=== PATIENT | female | born 1950 | race Caucasian/White ===

== ENCOUNTER → 2021-10-28 13:20 | Outpatient (BNVA) | payer OTHER, SELFPAY | PROVIDERS: Family Provider Nurse Practitioner; PCP Nurse Practitioner; Referring Provider Nurse Practitioner; Visit Provider Surgery | DX: Z12.11 Encounter for screening for malignant neoplasm of colon (principal) | CPT/HCPCS: 99204 ==

== ENCOUNTER 2021-12-17 06:02 | Day surgery (SDC) | payer OTHER, SELFPAY ==
[2021-12-12 12:17] VITALS: BMI 26.7
[2021-12-17 06:39] VITALS: BP 142/101; PULSE 82; RESP 18; TEMP 36.2; O2SAT 98
--- NOTE | 2021-12-17 06:47 | ANES.PREANE2 ---
Documented by User: Meena Gusman CRNA 12/17/21 06:51 Pre-Anesthetic Assessment Height/Weight: Height 1.7 m Weight 77.564 kg Preop Diagnosis: diagnostic Operation Date: 12/17/21 07:30 Proposed Procedures p Colonoscopy 69155/z12.11(Not Applicable) - Sanjay Arias MD Familial anesthetic complications: none Social Alcohol (wine 3x week) Airway Submandibular: within normal limits Cervical ROM: within normal limits Mallampati: Class II Dentition: partials (bridge) History/ROS No significant history except as noted Pulmonary None reported CV/HEM Hypertension Chronic Renal Insufficiency 40% reduction in kidney function in the last year currently undergoing evaluation. Hepatic None reported GI Gastroesophageal Reflux Disease Metabolic None reported Musc/skel sciatic issues. Neuropsych None reported Anesthetic Plan ASA status: 3 Anesthesia: MAC Medications/Allergies Home Medications Medication Instructions Recorded Confirmed Last Taken Type cyclobenzaprine 5 mg tablet 5 mg PO TID PRN 12/12/21 12/17/21 Unknown History magnesium 200 mg tablet 400 mg PO DAILY 12/12/21 12/17/21 12/12/21 History Allergies Allergy/AdvReac Type Severity Reaction Status Date / Time penicillamine Allergy algy-rash Verified 12/12/21 12:12 [facility] Anesthesia Medical History Ingrown toenail of right foot Surgical History (Updated 12/17/21 @ 08:08 by Sanjay Arias MD) History of colonoscopy (12/17/21) History of tonsillectomy and adenoidectomy Hx of appendectomy Hx of cholecystectomy Hx of tubal ligation Family History Denies family history of Diabetes CAD (coronary artery disease) Clotting disorder Dementia Hyperlipidemia Psychiatric illness Chronic kidney disease (CKD) Suicide Anesthesia complication Bleeding disorder Family history of premature coronary artery disease Lung disease Cancer Hypertension Stroke Social History Smoking and tobacco status: former smoker Alcohol intake: never Current occupational status: retired Data Anesthesia Cardiac Studies: No Data to Display Documented by User: Ginette Martinez DO 12/17/21 10:31 Pre-Anesthetic Assessment Was Beta Phi taken within 24 hours: N/A Was Clonidine taken within 24 hours: N/A Medications/Allergies Home Medications Medication Instructions Recorded Confirmed Last Taken Type cyclobenzaprine 5 mg tablet 5 mg PO TID PRN 12/12/21 12/17/21 Unknown History magnesium 200 mg tablet 400 mg PO DAILY 12/12/21 12/17/21 12/12/21 History Allergies Allergy/AdvReac Type Severity Reaction Status Date / Time penicillamine Allergy algy-rash Verified 12/12/21 12:12 [facility] Anesthesia Medical History Ingrown toenail of right foot Surgical History (Updated 12/17/21 @ 08:08 by Sanjay Arias MD) History of colonoscopy (12/17/21) History of tonsillectomy and adenoidectomy Hx of appendectomy Hx of cholecystectomy Hx of tubal ligation Family History Denies family history of Diabetes CAD (coronary artery disease) Clotting disorder Dementia Hyperlipidemia Psychiatric illness Chronic kidney disease (CKD) Suicide Anesthesia complication Bleeding disorder Family history of premature coronary artery disease Lung disease Cancer Hypertension Stroke Social History Smoking and tobacco status: former smoker Alcohol intake: never Current occupational status: retired Data Anesthesia Cardiac Studies: No Data to Display
[2021-12-17] MEDS: sodium chloride 0.9% 1,000 ML 30 ML IV (06:58)
--- NOTE | 2021-12-17 07:01 | P.HP_ITS ---
Same Day Surgery H&P Indication for Procedure/HPI DATE OF PROCEDURE: December 17, 2021 CHIEF COMPLAINT/INDICATIONFOR SURGICAL PROCEDURE: colonoscopy PREOP DIAGNOSIS: diagnostic PLANNED PROCEDURE: Operation Date: 12/17/21 07:30 Proposed Procedures p Colonoscopy 10235/z12.11(Not Applicable) - Sanjay Arias MD Medications/Allergies* Home Medications Medication Instructions Recorded Confirmed Type cyclobenzaprine 5 mg tablet 5 mg PO TID PRN 12/12/21 12/17/21 History magnesium 200 mg tablet 400 mg PO DAILY 12/12/21 12/17/21 History Allergies/Adverse Reactions Allergy/AdvReac Type Severity Reaction Status Date / Time penicillamine Allergy algy-rash Verified 12/12/21 12:12 Current Medications: Generic Name Dose Route Start Last Admin Trade Name Freq PRN Reason Stop Dose Admin Sodium Chloride 1,000 mls @ 30 mls/hr 12/17/21 06:30 12/17/21 06:58 Sodium Chloride 0.9% IV 12/18/21 06:29 30 mls/hr .Q24H TERESITA Administration Pertinent History/Comorbid Conditions* Medical History (Updated 09/16/19 @ 21:14 by Bandar Nassar DPM) Ingrown toenail of right foot Surgical History (Updated 10/28/21 @ 13:49 by Sanjay Arias MD) History of colonoscopy History of tonsillectomy and adenoidectomy Hx of appendectomy Hx of cholecystectomy Hx of tubal ligation Family History (Updated 09/12/19 @ 13:16 by Edilia Aranda LPN) Denies family history of Diabetes CAD (coronary artery disease) Clotting disorder Dementia Hyperlipidemia Psychiatric illness Chronic kidney disease (CKD) Suicide Anesthesia complication Bleeding disorder Family history of premature coronary artery disease Lung disease Cancer Hypertension Stroke Social History Smoking and tobacco status: former smoker Alcohol intake: never Current occupational status: retired Pertinent Exam Findings alert, oriented x 3 and regular rate & rhythm Recommendations Surgery/Procedure today Coding Level of Care Code Acute Plasma Processing Centrifuge Operator for Radha Porter
[2021-12-17 08:04] VITALS: BP 121/86; PULSE 81; RESP 14; TEMP 36.1; O2SAT 97
[2021-12-17 08:11] VITALS: BP 133/96; PULSE 72; RESP 16; O2SAT 95
[2021-12-17 08:22] VITALS: BP 155/99; PULSE 65; RESP 16; O2SAT 96
--- NOTE | 2021-12-17 10:31 | ANE.PACU2 ---
Inpatient post-anesthesia follow up: Airway intact: Yes Vital signs: Temperature 97.0 F Pulse Rate 65 Respiratory Rate 16 Blood Pressure 155/99 Pulse Oximetry 96 Oxygen Delivery Me thod Room Air Oxygen Flow Rate Fraction of Inspir ed Oxygen Hydration adequate: Yes Nausea and vomiting: No Pain level: 1 Mental status: Baseline
== END 2021-12-17 08:30 | disposition home or self-care (01) ==
PROVIDERS: PCP Nurse Practitioner; Visit Provider Surgery
PROC: 0DJD8ZZ Inspection of Lower Intestinal Tract, Via Natural or Artificial Opening Endoscopic (ICD-10-PCS; CPT 45378; principal; 2021-12-17 07:30)
DX: Z12.11 Encounter for screening for malignant neoplasm of colon (principal); D12.4 Benign neoplasm of descending colon; K57.30 Diverticulosis of large intestine without perforation or abscess without bleeding; D12.5 Benign neoplasm of sigmoid colon; Z87.891 Personal history of nicotine dependence; I10 Essential (primary) hypertension; K21.9 Gastro-esophageal reflux disease without esophagitis
CPT/HCPCS: 45380; 88305; J2704; J7030

== ENCOUNTER → 2021-12-30 11:53 | Outpatient (BNVA) | payer OTHER, SELFPAY | PROVIDERS: PCP Nurse Practitioner; Visit Provider Surgery | DX: K63.5 Polyp of colon (principal) | CPT/HCPCS: 99212 ==

== ENCOUNTER 2022-01-07 12:28 | Outpatient (CLI) | payer OTHER, SELFPAY ==
--- NOTE | 2022-01-07 12:40 | MR_ITS ---
WS: [id number] MRI LUMBAR SPINE NONCONTRAST HISTORY: low back pain COMPARISON: None available. TECHNIQUE: Sagittal and axial multisequence imaging is submitted. Mild increase in the thoracic kyphosis. Disc spaces are narrowed and small osteophytes and/or disc pr otrusions. No high-grade thoracic stenosis. Mild LEFT curvature of lumbar spine. 2 mm retrolisthesis of L4. No lumbar spine fracture or edema. Disc spaces are mildly narrowed and desiccated. Conus terminates normally at L1. L1-L2: Normal. L2-L3: Mild disc bulging. Mild encroachment upon the LEFT traversing L3 nerve root but no displacemen t. No high-grade stenosis. L3-L4: Mild annular disc bulge with a central shallow protrusion and annular fissure. Mild ligamentum flavum and facet arthritis. Mild bilateral subarticular recess encroachment and contact on the trave rsing L4 nerve roots. L4-L5: Mild asymmetric disc bulging to the LEFT. Asymmetric ligamentum flavum hypertrophy, greatest o n the LEFT. Mild bilateral facet joint arthritis. There is mild encroachment into the ventral thecal sac with mild central and bilateral subarticular recess and LEFT foraminal stenosis. L5-S1: Mild disc bulging and very minimal contact on the S1 nerve roots but no displacement. Very min imal foraminal narrowing. Visualized retroperitoneum is normal. MR/MR lumbar spine wo con* [id number] IMPRESSION: 1. Mild LEFT curvature lumbar spine. 2. Mild encroachment LEFT traversing L3 nerve root. 3. Very shallow central disc protrusion and annular fissure at L3-4. 4. Mild disc encroachment in the subarticular recesses at L3-4 with minimal co ntact on the traversing L4 nerve roots. 5. Mild central, bilateral subarticular recess and LEFT foraminal stenosis at L4-5. 6. Very minimal disc contact on the traversing S1 nerve roots bilaterally.
== END 2022-01-07 12:29 | disposition home or self-care (01) ==
LOC: RAD 12:29
PROVIDERS: PCP Nurse Practitioner; Visit Provider Nurse Practitioner
DX: M54.50 Low back pain, unspecified (principal); M43.9 Deforming dorsopathy, unspecified; M48.061 Spinal stenosis, lumbar region without neurogenic claudication
CPT/HCPCS: 72148

== ENCOUNTER 2022-01-07 12:28 | Outpatient (CLI) | payer OTHER, SELFPAY ==
--- NOTE | 2022-01-07 12:35 | MR_ITS ---
WS: [id number] MRI RIGHT SHOULDER HISTORY: RIGHT SHOULDER PAIN COMPARISON: Pain, osteophytes. TECHNIQUE: Multiplanar sequences of the shoulder joint are submitted. Mild AC joint arthritis. Mild narrowing of the joint space with small osteophytes. There are increase d fluid signal in a portion of the AC joint. 4 mm osteophyte from the distal undersurface of the acro mion with mild subacromial impingement. No os acromion. Biceps tendon is in normal position. Very slight high riding of the humeral head with respect to the glenoid. Mild tendinopathy in the dis ancelmo supraspinatus. Oblique increased signal along the bursal surface of the supraspinatus directly ov er the humeral head. Consistent with a partial bursal surface tear. Additional mild distal tendinopat hy. No retraction of the tendon. No atrophy. The remaining rotator cuff is intact. No labral tear or abnormality. Mild degenerative changes along the surface of the glenoid. MR/MR shoulder RT wo con* [id number] IMPRESSION: 1. Small focal bursal surface tear supraspinatus tendon. 2. Mild AC joint arthritis. 3. 4 mm osteophyte causing mild subacromial impingement. 4. Degenerative osteoarthritic changes along the glenoid surface. Loss of cart ilage and small osteophyte development.
== END 2022-01-07 12:29 | disposition home or self-care (01) ==
LOC: RAD 12:29
PROVIDERS: PCP Nurse Practitioner; Visit Provider Nurse Practitioner
DX: M25.511 Pain in right shoulder (principal); M75.101 Unspecified rotator cuff tear or rupture of right shoulder, not specified as traumatic; M25.711 Osteophyte, right shoulder
CPT/HCPCS: 73221

== ENCOUNTER 2022-06-15 07:00 | Outpatient (CLI) | payer OTHER, SELFPAY ==
--- NOTE | 2022-06-15 07:19 | CT_ITS ---
WS: [id number] CT HEAD NONCONTRAST HISTORY: MEMORY LOSS TECHNIQUE: Contiguous axial imaging performed through the brain in 2.5 mm imaging. Bone and soft tiss ue windows. Sagittal and coronal reformats reviewed. All CT scans at [facility] use at least one of these dose optimization techniques: automated exposure control; mA and/or kV adjustment per pa tient size (includes targeted exams where dose is matched to clinical indication); or iterative recon struction. DLP: 1007.60 mGy.cm COMPARISON: None available. No acute intracranial hemorrhage, midline shift or mass effect. Mild to moderate atrophy and small small vessel ischemic disease. Atrophy is predominantly involving the frontal lobes. No prior infarct. No sulcal effacement or mass effect. Ventricles: Normal size with no hydrocephalus. No inferior displacement of cerebellar tonsils. Paranasal sinuses: As visualized are clear. Mastoid air cells: Well pneumatized. Calvarium and scalp: Skull is intact with no soft tissue edema or swelling. CT/CT head wo con* [id number] IMPRESSION: 1. No acute intracranial hemorrhage or edema. 2. Multilevel moderate bifrontal lobe atrophy. 3. Mild small vessel ischemic disease.
== END 2022-06-15 07:01 | disposition home or self-care (01) ==
LOC: RAD 07:02
PROVIDERS: PCP Nurse Practitioner; Visit Provider Nurse Practitioner
DX: R41.3 Other amnesia (principal); I67.82 Cerebral ischemia; G31.9 Degenerative disease of nervous system, unspecified
CPT/HCPCS: 70450

== ENCOUNTER 2022-07-14 06:53 | Outpatient (CLI) | payer OTHER, SELFPAY | END 2022-07-14 06:54 | disposition home or self-care (01) | LOC: SLEEP 07-15 06:54 | PROVIDERS: PCP Nurse Practitioner; Visit Provider Nurse Practitioner | DX: R53.83 Other fatigue (principal); R06.83 Snoring; G47.33 Obstructive sleep apnea (adult) (pediatric) | CPT/HCPCS: 95810 ==

== ENCOUNTER 2023-09-27 15:35 | Outpatient (CLI) | payer OTHER, SELFPAY ==
--- NOTE | 2023-09-27 15:40 | MM_ITS ---
WS: [id number] BILATERAL 3D TOMOSYNTHESIS DIGITAL SCREENING MAMMOGRAPHY WITH CAD CLINICAL INFORMATION: SCREENING HISTORY: Screening mammogram. No current complaints. COMPARISON: 2022 TECHNIQUE: Bilateral CC and MLO views. FINDINGS: Scattered fibroglandular densities bilaterally. No suspicious focal mass, asymmetry, calcifications, or architectural distortion. No evidence of malignancy. IMPRESSION: MM/[place] [id number] BI-RADS: 1-Negative FOLLOW UP: 1 Year Follow-up Recommend return to annual screening mammography.
== END 2023-09-27 15:36 | disposition home or self-care (01) ==
LOC: RAD 15:36
PROVIDERS: PCP Nurse Practitioner; Visit Provider Nurse Practitioner
DX: Z12.31 Encounter for screening mammogram for malignant neoplasm of breast (principal)
CPT/HCPCS: 77063; 77067

== ENCOUNTER 2024-01-06 09:19 | Emergency (ER) | payer OTHER, SELFPAY ==
[2024-01-06 09:29] VITALS: BP 127/67; PULSE 64; RESP 18; TEMP 36.7; O2SAT 100; BMI 27.3
--- NOTE | 2024-01-06 09:35 | XR_ITS ---
WS: [id number] Exam: XR chest 1V portable [id number] Date/Time of Exam: 01/06/2024 9:35 AM Reason For Exam: dyspnea/cough No comparisons. The lungs are fully expanded and clear. Normal cardiomediastinal silhouette. Regional bony structures are intact. No pleural effusions. Degenerative changes of both shoulders. XR/XR chest 1V portable [id number] IMPRESSION: 1. Negative chest.
--- NOTE | 2024-01-06 09:57 | ECG_ITS ---
[facility] Test Date: 2024-01-06 Pat Name: Meera Hicks Department: Room: Gender: Female Circulator: : 1950 Requested By: Sherri Goodwin Order Number: [id number] Dimas MD: Jonatan Corona M.D. Measurements Intervals Gaston Rate: 60 P: 66 GA: 165 QRS: 13 QRSD: 90 T: 65 QT: 379 QTc: 382 Interpretive Statements SINUS RHYTHM LOW QRS VOLTAGE IN PRECORDIAL LEADS [QRS DEFLECTION < 1.0 mV IN CHEST LEADS] No previous ECG available for comparison Electronically Signed On 01-07-2024 13:36:49 CDT by Jonatan Corona M.D. [id number]
[2024-01-06 10:02] LABS: Basophils % 0.5 %; Eosinophils # 0.1 10^3/uL (0.0-0.8); Eosinophils % 1.4 %; Hematocrit 40.4 % (36-47); Lymphocytes # 2.1 10^3/uL (0.8-4.8); Lymphocytes % 36.3 %; Mean Corpuscular HGB Conc 32.7 g/dL (30-55); Mean Corpuscular Hemoglobin 30.9 pg (27-33); Mean Corpuscular Volume 94.6 fl (85-98); Mean Platelet Volume 11.1 fL (7.4-10.4); Monocytes # 0.5 10^3/uL (0.2-0.9); Monocytes % 8.2 %; Neutrophils # 3.07 10^3/uL (1.8-7.7); Neutrophils % 53.4 %; Nucleated Red Blood Cells % 0 %; Platelet Count 301 10^3/cmm (157-399); Red Blood Count 4.27 10^6/uL (3.85-5.65); White Blood Count 5.75 10^3/uL (3.29-11.43)
[2024-01-06 10:22] LABS: Alanine Aminotransferase 11 U/L (0-33); Albumin Level 4.5 g/dL (3.5-5.2); Alkaline Phosphatase 57 U/L (35-105); Anion Gap 13.9 (5-19); Aspartate Amino Transferase 18 U/L (0-32); Blood Urea Nitrogen 16 mg/dL (8-23); Calcium 9.4 mg/dL (8.5-10.5); Carbon Dioxide 30 mmol/L (22-29); Chloride 102 mmol/L (98-107); Creatinine Clr Calc Pharmacy 55.9713; Globulin 2.7 g/dL (1.3-4.6); Glucose 84 mg/dL (65-115); Osmolality Calculated 292 mOsm/kg (285-295); Potassium 4.9 mmol/L (3.5-5.1); Sodium 141 mmol/L (136-145); Total Bilirubin 0.4 mg/dL (0.15-1.2); Total Protein 7.2 g/dL (6.6-8.7)
[2024-01-06 10:23] LABS: Troponin(5th) Baseline < 6 ng/L (0-10)
--- NOTE | 2024-01-06 10:45 | ED_ITS ---
HPI - Chest Pain 2 General: Chief Complaint: Chest Pain Stated Complaint: SOB Time Seen by Provider: 01/06/24 09:28 Source: patient Mode of arrival: ambulatory Limitations: no limitations History of Present Illness: 73-year-old female states she has been h aving central chest pain over the last 2 weeks she states that sharp pain states began when she is moving furniture pain is worse with movement and palpation. States she seen a chiropractor has had no improvement she denies any shortness of breath denies any nausea or vomiting denies any diaphoresis Associated symptoms: Deny abdominal pain, dyspnea, fever(s), nausea or vomiting Review of Systems 2 Const: Denies: fever(s), chills, body aches or change in appetite ENMT: Denies: throat pain or dental pain Card: Reports: chest pain Resp: Denies: dyspnea GI: Denies: abdominal pain, nausea, vomiting or diarrhea Musc: Denies: neck pain or back pain Skin/Breast: Denies: rash Neuro: Denies: headache(s) PFSH ED 2 PFSH: Medical History Colon polyps Ingrown toenail of right foot Surgical History History of tonsillectomy and adenoidectomy History of colonoscopy (12/17/21) Hx of cholecystectomy Hx of appendectomy Hx of tubal ligation Family History Denies family history of Diabetes CAD (coronary artery disease) Clotting disorder Dementia Hyperlipidemia Psychiatric illness Chronic kidney disease (CKD) Suicide Anesthesia complication Bleeding disorder Family history of premature coronary artery disease Lung disease Cancer Hypertension Stroke Social History Smoking and tobacco/nicotine status: former use of tobacco/nicotine Alcohol intake: never Substance/Drug Use: never Current occupational status: retired Physical Exam 2 Const: COMMON NORMALS: no acute distress, patient oriented x3 and healthy appearing HENMT: COMMON NORMALS: normocephalic and atraumatic HEAD & SCALP: n ormocephalic and atraumatic Eye: COMMON NORMALS: Equal, round and reactive pupils present and EOMs intact bilaterally PUPIL: Yes Equal, round and reactive pupils present Neck/C-Spine: COMMON NORMALS: full ROM and supple Chest: COMMONS NORMALS: normal inspection of the chest OTHER: Point tender in center of chest reproduces her pain Resp: COMMON NORMALS: normal respiratory effort, No retractions, No use of accessory muscles and clear to auscultation bilaterally AUSCULTATION: clear to auscultation bilaterally Cardio: COMMON NORMALS: regular rate, regular rhythm and No murmurs present (Cardio) RATE: regular rate RHYTHM: regular rhythm GI: COMMON NORMALS: Normal to inspection, nondistended, normoactive bowel sounds present, Soft to palpation, non-tender and no masses PALPATION: Yes Soft to palpation Extremity: COMMON NORMALS: normal to inspection and full ROM Neuro: COMMON NORMALS: patient oriented x3, moves all extremities and no focal motor deficits Psych: COMMON NORMALS: mental status grossly normal, Normal thought process present and cooperative THOUGHT PROCESS: Normal thought process present Skin: COMMON NORMALS: no rashes or lesions noted and no wounds GENERAL SKIN EXAM: no rashes or lesions noted Course 2 Vital Signs: Vital signs: Vital Signs Temperature 98.0 F 01/06/24 09:29 Pulse Rate 64 01/06/24 09:29 Respiratory Rate 18 01/06/24 09:29 Blood Pressure 127/67 01/06/24 09:29 Pulse Oximetry 100 01/06/24 09:29 Oxygen Delivery Me thod Room Air 01/06/24 09:29 MDM - Chest Pain Medical Decision Making Patient presents here with chest pains atypical in nature she is point tender is likely chest wall pain her blood work here is normal she is stable for discharge follow-up PCP return if worsening she understands agrees to plan Medical Records I reviewed the patient's medical records. Lab Data I reviewed the patient's lab results. 01/06/24 09:53 01/06/24 09:53 Radiology Impressions Chest X-Ray 01/06/24 09:35 IMPRESSION: 1. Negative chest. Laboratory Results WBC 5.75 10^3/uL (3.29-11.43) 01/06/24 09:53 RBC 4.27 10^6/uL (3.85-5.65) 01/06/24 09:53 Hgb 13.20 g/dL (11.27-16.99) 01/06/24 09:53 Hct 40.4 % (36-47) 01/06/24 09:53 MCV 94.6 fl (85-98) 01/06/24 09:53 MCH 30.9 pg (27-33) 01/06/24 09:53 MCHC 32.7 g/dL (30-55) 01/06/24 09:53 RDW 12.0 % (12.1-15.1) L 01/06/24 09:53 Plt Count 301 10^3/cmm (157-399) 01/06/24 09:53 MPV 11.1 fL (7.4-10.4) H 01/06/24 09:53 Neut % (Auto) 53.4 % 01/06/24 09:53 Lymph % (Auto) 36.3 % 01/06/24 09:53 Meeker % (Auto) 8.2 % 01/06/24 09:53 Eos % (Auto) 1.4 % 01/06/24 09:53 Baso % (Auto) 0.5 % 01/06/24 09:53 Neut # (Auto) 3.07 10^3/uL (1.8-7.7) 01/06/24 09:53 Lymph # (Auto) 2.1 10^3/uL (0.8-4.8) 01/06/24 09:53 Meeker # (Auto) 0.5 10^3/uL (0.2-0.9) 01/06/24 09:53 Eos # (Auto) 0.1 10^3/uL (0.0-0.8) 01/06/24 09:53 Baso # (Auto) 0.0 10^3/uL (0.0-0.1) 01/06/24 09:53 Nucleated RBC % (auto) 0 % 01/06/24 09:53 Nucleated RBCs # 0.0 /100WBC 01/06/24 09:53 Sodium 141 mmol/L (136-145) 01/06/24 09:53 Potassium 4.9 mmol/L (3.5-5.1) 01/06/24 09:53 Chloride 102 mmol/L (98-107) 01/06/24 09:53 Carbon Dioxide 30 mmol/L (22-29) H 01/06/24 09:53 Anion Gap 13.9 (5-19) 01/06/24 09:53 BUN 16 mg/dL (8-23) 01/06/24 09:53 Creatinine 1.0 mg/dL (0.5-0.9) H 01/06/24 09:53 GFR Calculation Not Reportable 01/06/24 09:53 Glucose 84 mg/dL (65-115) 01/06/24 09:53 Calculated Osmolality 292 mOsm/kg (285-295) 01/06/24 09:53 Calcium 9.4 mg/dL (8.5-10.5) 01/06/24 09:53 Total Bilirubin 0.4 mg/dL (0.15-1.2) 01/06/24 09:53 AST 18 U/L (0-32) 01/06/24 09:53 ALT 11 U/L (0-33) 01/06/24 09:53 Alkaline Phosphatase 57 U/L (35-105) 01/06/24 09:53 Troponin T Baseline < 6 ng/L (0-10) 01/06/24 09:53 Total Protein 7.2 g/dL (6.6-8.7) 01/06/24 09:53 Albumin 4.5 g/dL (3.5-5.2) 01/06/24 09:53 Globulin 2.7 g/dL (1.3-4.6) 01/06/24 09:53 Lipase 52 U/L (13-60) 01/06/24 09:53 All radiology interpretation(s) finalized by discharge EKG Data EKG 1: I personally reviewed and interpreted this EKG as follows: EKG interpretation date: 01/06/24 EKG interpretation time: 10:28 Interpretation: nsr hr [address] elevation qrs 104 qtc 421 Discharge Plan Discharge Patient Disposition: Home Clinical Impression: Chest pain Condition: Stable Prescriptions: New Naprosyn 500 mg tablet 500 mg PO BID PRN (Reason: pain) Qty: 20 0RF No Action multivitamin Tablet 1 tab PO DAILY lisinopril 20 mg Tablet 20 mg PO DAILY omeprazole 40 mg Capsule,Delayed Release(Dr/Ec) 80 mg PO DAILY cholecalciferol (vitamin D3) 10 mcg (400 unit) Tablet 10 mcg PO DAILY vitamin E 268 mg (400 unit) Capsule 268 mg PO DAILY calcium citrate 250 mg calcium Tablet 250 mg PO DAILY Discharge Orders: Discharge ED (Routine); Ordered 01/06/24 Ordered By: Sherri Goodwin Referrals: Libertad Adhikari FNP [Primary Care Provider] - 4-7 days Discharge Diet: Advance as tolerated Discharge Activity: Resume usual activity Patient Instructions: Chest Wall Pain (ED) Coding Level of Care Code ED Qm Consultant for Radha Porter
[2024-01-06 10:51] LABS: Lipase 52 U/L (13-60)
[2024-01-06] MEDS: ketorolac 30 mg/mL INJ IM (11:03)
[2024-01-06 11:10] VITALS: BP 169/91; PULSE 57; O2SAT 100
[2024-01-06 11:22] VITALS: PULSE 62; O2SAT 99
== END 2024-01-06 11:24 | disposition home or self-care (01) ==
PROVIDERS: Family Medicine; Emergency Provider Emergency Medicine; PCP Nurse Practitioner
DX: R07.9 Chest pain, unspecified (principal); Z87.891 Personal history of nicotine dependence
CPT/HCPCS: 36415; 71045; 80053; 83690; 84484; 85025; 93005; 96372; 99285; J1885

== ENCOUNTER → 2024-08-28 14:26 | Outpatient (BNVA) | payer OTHER, SELFPAY | PROVIDERS: PCP Nurse Practitioner; Visit Provider Specialist | DX: M17.0 Bilateral primary osteoarthritis of knee (principal) | CPT/HCPCS: 20610; 73560; 73565; 99205; J7325 ==

== ENCOUNTER → 2024-08-30 14:59 | Outpatient (BNVA) | payer OTHER, SELFPAY | PROVIDERS: PCP Nurse Practitioner; Visit Provider Specialist | DX: M19.011 Primary osteoarthritis, right shoulder (principal) | CPT/HCPCS: 20610; 73030; 99214; J1100; J2795; J3301 ==

== ENCOUNTER 2024-09-27 12:58 | Outpatient (CLI) | payer OTHER, SELFPAY ==
--- NOTE | 2024-09-27 13:04 | XR_ITS ---
WS: [email or web address] SCREENING DEXA SCAN [employer] CLINICAL INFORMATION: [id number] COMPARISON: None. FINDINGS: The L1-L4 bone mineral density measures 1.024 g/cm2. This corresponds to a T score score of -1.3 and Z score of 0.0. Left femoral neck bone mineral density measures 0.797 g/cm2. This corresponds to a T score of -1.7 and Z score of -0.4. Right femoral neck bone mineral density measures 0.889 g/cm2. This corresponds to a T score -0.9of and Z score of 0.3. Mean femoral neck bone mineral density measures 0.843 g/cm2. This corresponds to a T score of -1.3 and Z score of 0.0. XR/XR DEXA axial skeleton* [id number] IMPRESSION: Osteopenia lumbar spine. Osteopenia femoral necks. Patient's FRAX calculated 10 year probability for major osteoporotic fracture i s 46.3% and osteoporotic hip fracture is 23.1%.
--- NOTE | 2024-09-27 13:06 | MM_ITS ---
WS: [id number] BILATERAL 3D TOMOSYNTHESIS DIGITAL SCREENING MAMMOGRAPHY WITH CAD CLINICAL INFORMATION: SCREENING HISTORY: Screening mammogram. No current complaints. COMPARISON: 2023 TECHNIQUE: Bilateral CC and MLO views. FINDINGS: Scattered fibroglandular densities bilaterally. No suspicious focal mass, asymmetry, calcifications, or architectural distortion. No evidence of malignancy. MM/MM scr BI tomosynthesis [id number] IMPRESSION: DENSITY: There are scattered areas of fibroglandular density. BI-RADS: 1 - Negative. FOLLOW UP: 1 Year Follow-up Recommend return to annual screening mammography.
== END 2024-09-27 12:59 | disposition home or self-care (01) ==
PROVIDERS: PCP Nurse Practitioner; Visit Provider Nurse Practitioner
DX: Z12.31 Encounter for screening mammogram for malignant neoplasm of breast (principal); R92.323 Mammographic fibroglandular density, bilateral breasts; Z01.89 Encounter for other specified special examinations; M85.89 Other specified disorders of bone density and structure, multiple sites
CPT/HCPCS: 77063; 77067; 77080

== ENCOUNTER → 2025-05-18 09:20 | Outpatient (BNVA) | payer OTHER, SELFPAY | PROVIDERS: PCP Nurse Practitioner; Visit Provider Specialist | DX: M17.12 Unilateral primary osteoarthritis, left knee (principal) | CPT/HCPCS: 20610; J7325 ==